=== PATIENT | female | born 1990 | race Caucasian/White ===

== ENCOUNTER 2021-04-17 20:00 | Emergency (ER) | payer MEDICARE | END 2021-04-17 21:20 | disposition home or self-care (01) | LOC: CSHERS 20:00 | DX: T81.41XA Infection following a procedure, superficial incisional surgical site, initial encounter (principal); L03.113 Cellulitis of right upper limb; E28.2 Polycystic ovarian syndrome; Z87.891 Personal history of nicotine dependence; I47.1 Supraventricular tachycardia; Z79.899 Other long term (current) drug therapy; E03.9 Hypothyroidism, unspecified | CPT/HCPCS: 99282 ==

== ENCOUNTER 2022-04-14 13:24 | Emergency (ER) | payer MEDICAID, MEDICARE | END 2022-04-14 13:59 | disposition home or self-care (01) | LOC: CSHERS 13:24 | DX: L30.9 Dermatitis, unspecified (principal); Z87.891 Personal history of nicotine dependence | CPT/HCPCS: 99282 ==

== ENCOUNTER 2022-07-01 16:56 | Emergency (ER) | payer MEDICARE | END 2022-07-01 19:00 | disposition home or self-care (01) | LOC: CSHERS 16:56 | DX: R05.9 Cough, unspecified (principal); Z20.822 Contact with and (suspected) exposure to COVID-19; E03.9 Hypothyroidism, unspecified; Z87.891 Personal history of nicotine dependence | CPT/HCPCS: 71046; 99283; U0003; U0005 ==

== ENCOUNTER 2022-07-10 20:20 | Emergency (ER) | payer MEDICARE ==
[~2022-07-10 20:20] MED LIST: Iopamidol 370 76% 100 ML VIAL ONE
[2022-07-10 21:01] LABS: #Basophils 0.1 10x3/uL (0.0-0.2); #Eosinphils 0.1 10x3/uL (0.0-0.5); #Monocytes 1.2 10x3/uL (0.0-1.1); #Neutrophils 9.8 10x3/uL (1.5-8.4); %Basophils 0.4 % (0.0-2.0); %Eosinophils 0.4 % (0.0-6.0); %Lymphocytes 21.3 % (18.0-47.0); %Monocytes 8.1 % (0.0-10.0); %Neutrophils 69.4 % (40.0-75.0); Hemoglobin 13.1 g/dL (12.0-15.5); Mean Corpuscular HGB CONC 34.7 g/dL (32.0-36.0); Mean Corpuscular Hemoglobin 28.9 pg (27.0-33.0); Mean Corpuscular Volume 83.4 fl (81.6-98.3); Mean Platelet Volume 8.8 fl (7.4-10.4); Platelet Count 293 10x3/uL (150-450); RBC Distribution Width 12.4 % (11.5-14.5); Red Blood Cell (RBC) Count 4.53 10x6/uL (3.90-5.03); White Blood Cell (WBC) Count 14.2 10x3/uL (3.5-10.5)
[2022-07-10 21:13] LABS: BHCG - Serum Negative (NEGATIVE); Pregs Control Bar Appear? YES (CONTROL BAR)
[2022-07-10 21:14] LABS: Pregs Control Background? CLEAR/WHITE (CLR/WHITE)
[2022-07-10 21:24] LABS: ALT (SGPT) 14 U/L (8-55); AST (SGOT) 17 U/L (5-34); Albumin 5.1 g/dL (3.5-5.0); Alkaline Phosphatase 104 U/L (40-110); Anion Gap 18 mmol/L (10-20); BUN (Urea Nitrogen) 8 mg/dL (7.0-18.7); Bilirubin, Total 0.5 mg/dL (0.2-1.2); Calc. Creatinine Clearance 0 mL/min (70-130); Calcium 10.3 mg/dL (7.8-10.44); Carbon Dioxide 22 mmol/L (22-29); Chloride 101 mmol/L (98-107); Estimated GFR 112; Globulin 3.1 g/dL (2.4-3.5); Glucose 91 mg/dL (70-105); Lipase 26 U/L (8-78); Potassium 3.7 mmol/L (3.5-5.1); Protein, Total 8.2 g/dL (6.0-8.3); Sodium 137 mmol/L (136-145)
== END 2022-07-10 22:02 | disposition home or self-care (01) ==
LOC: CSHERS 20:20
DX: R07.89 Other chest pain (principal); E03.9 Hypothyroidism, unspecified; Z87.891 Personal history of nicotine dependence; Z79.899 Other long term (current) drug therapy
CPT/HCPCS: 71045; 71275; 80053; 83690; 84484; 84703; 85025; 93005; Q9967

== ENCOUNTER 2023-02-08 19:27 | Emergency (ER) | payer MEDICARE, OTHER ==
[2023-02-08] MEDS ORDERED: Lidocaine 1% (PF) 30 ML VIAL ONE (20:14)
== END 2023-02-08 22:08 | disposition home or self-care (01) ==
LOC: CSHERS 19:27
DX: K14.8 Other diseases of tongue (principal); E03.9 Hypothyroidism, unspecified; Z95.0 Presence of cardiac pacemaker; Z87.891 Personal history of nicotine dependence
CPT/HCPCS: 10160; J2001

== ENCOUNTER 2023-03-11 11:18 | Emergency (ER) | payer OTHER | END 2023-03-11 13:45 | disposition home or self-care (01) | LOC: CSHERS 11:18 | DX: S80.862A Insect bite (nonvenomous), left lower leg, initial encounter (principal); S80.861A Insect bite (nonvenomous), right lower leg, initial encounter; E03.9 Hypothyroidism, unspecified; W57.XXXA Bitten or stung by nonvenomous insect and other nonvenomous arthropods, initial encounter | CPT/HCPCS: 99282 ==

== ENCOUNTER 2024-02-07 21:03 | Day surgery (SDC) | payer OTHER ==
[2024-02-07 21:59] VITALS: BMI 27.2
[2024-02-07] MEDS ORDERED: hydrALAZINE 20 MG/ML VIAL SLOW IVP PRN (22:29)
[2024-02-07] MEDS ORDERED: Lactated Ringer's 1,000 ML IV SCH (22:30)
[2024-02-07] MEDS ORDERED: Acetaminophen 325 MG TAB PO PRN (22:40)
[2024-02-07] MEDS: Ondansetron ODT 4 MG TAB PO PRN (22:43)
[2024-02-07 23:00] LABS: #Basophils 0.1 10x3/uL (0.0-0.2); #Monocytes 0.9 10x3/uL (0.0-1.1); #Neutrophils 16.8 10x3/uL (1.5-8.4); %Basophils 0.4 % (0.0-2.0); %Eosinophils 0.1 % (0.0-6.0); %Lymphocytes 6.4 % (18.0-47.0); %Monocytes 4.5 % (0.0-10.0); %Neutrophils 86.5 % (40.0-75.0); Hematocrit 38.9 % (34.9-44.5); Hemoglobin 13.4 g/dL (12.0-15.5); Mean Corpuscular HGB CONC 34.4 g/dL (32.0-36.0); Mean Corpuscular Hemoglobin 30.1 pg (27.0-33.0); Mean Corpuscular Volume 87.4 fl (81.6-98.3); Mean Platelet Volume 9.5 fl (7.4-10.4); Platelet Count 275 10x3/uL (150-450); RBC Distribution Width 12.9 % (11.5-14.5); Red Blood Cell (RBC) Count 4.45 10x6/uL (3.90-5.03); White Blood Cell (WBC) Count 19.4 10x3/uL (3.5-10.5)
[2024-02-08 00:17] LABS: Bilirubin Neg (Negative); Blood, Urine Negative (Negative); Glucose, Urine (Dipstick) Normal (Negative); Ketone, Urine 150 mg/dL (Negative); Leukocyte Negative (Negative); Nitrite Negative (Negative); Protein, Urine (Dipstick) 30 mg/dl (Neg-Trace); Specific Gravity, Urine 1.025 (1.005-1.030); Urobilinogen Normal mg/dL (Less than 2)
[2024-02-08 00:19] LABS: Clarity Clear (Clear)
[2024-02-08 00:31] LABS: ALT (SGPT) 14 U/L (8-55); AST (SGOT) 16 U/L (5-34); Albumin 3.7 g/dL (3.5-5.0); Alkaline Phosphatase 71 U/L (40-110); Anion Gap 16 mmol/L (10-20); BUN (Urea Nitrogen) 11 mg/dL (7.0-18.7); Bilirubin, Total 0.4 mg/dL (0.2-1.2); Calc. Creatinine Clearance 153 mL/min (70-130); Carbon Dioxide 19 mmol/L (22-29); Chloride 109 mmol/L (98-107); Estimated GFR 120; Globulin 3.1 g/dL (2.4-3.5); Glucose 98 mg/dL (70-105); Potassium 4.5 mmol/L (3.5-5.1); Protein, Total 6.8 g/dL (6.0-8.3); Sodium 139 mmol/L (136-145)
[2024-02-08 00:33] LABS: Bacteria/HPF 1+ HPF (None Seen); CAUTI Indications for Culture Pregnancy; Mucous/LPF 1+ LPF (<2+); RBC/HPF 0-3 HPF (0-3); WBC/HPF 0-3 HPF (0-3)
[2024-02-08 00:34] LABS: Urine Culture Reflex Yes Yes
== END 2024-02-08 03:30 | disposition home or self-care (01) ==
LOC: CSHLD/OP 21:03
PROVIDERS: ATTEND Student in an Organized Health Care Education/Training Program
DX: O21.2 Late vomiting of pregnancy (principal); O99.613 Diseases of the digestive system complicating pregnancy, third trimester; A08.4 Viral intestinal infection, unspecified; O99.283 Endocrine, nutritional and metabolic diseases complicating pregnancy, third trimester; E03.9 Hypothyroidism, unspecified; E86.0 Dehydration; O99.413 Diseases of the circulatory system complicating pregnancy, third trimester; I49.5 Sick sinus syndrome; O34.211 Maternal care for low transverse scar from previous cesarean delivery; Z90.49 Acquired absence of other specified parts of digestive tract; Z98.890 Other specified postprocedural states; Z95.0 Presence of cardiac pacemaker; Z3A.29 29 weeks gestation of pregnancy
CPT/HCPCS: 76819; 80053; 81001; 85025; 87086; 96360; 99281; Q0162

== ENCOUNTER 2024-10-16 09:41 | Emergency (ER) | payer MEDICARE, OTHER | END 2024-10-16 11:15 | disposition home or self-care (01) | LOC: CSHERS 09:41 | DX: S52.122A Displaced fracture of head of left radius, initial encounter for closed fracture (principal); E03.9 Hypothyroidism, unspecified; Z79.899 Other long term (current) drug therapy; Z95.0 Presence of cardiac pacemaker; W18.30XA Fall on same level, unspecified, initial encounter | CPT/HCPCS: 99283 ==

== ENCOUNTER 2024-10-27 18:11 | Emergency (ER) | payer OTHER ==
[2024-10-29 03:45] LABS: #Basophils 0.06 10x3/uL (0.0-0.2); #Eosinophils 0.18 10x3/uL (0.0-0.5); #Monocytes 0.81 10x3/uL (0.0-1.1); #Neutrophils 6.82 10x3/uL (1.5-8.4); %Basophils 0.6 % (0.0-2.0); %Eosinophils 1.7 % (0.0-6.0); %Monocytes 7.8 % (0.0-10.0); %Neutrophils 65.5 % (40.0-75.0); BHCG - Serum Negative (NEGATIVE); Hematocrit 39.8 % (34.9-44.5); Hemoglobin 14.1 g/dL (12.0-15.5); Mean Corpuscular HGB CONC 35.4 g/dL (32.0-36.0); Mean Corpuscular Hemoglobin 30.7 pg (27.0-33.0); Mean Corpuscular Volume 86.7 fL (81.6-98.3); Mean Platelet Volume 8.9 fL (7.4-10.4); Platelet Count 330 10x3/uL (150-450); Pregs Control Background? CLEAR/WHITE (CLR/WHITE); Pregs Control Bar Appear? YES (CONTROL BAR); RBC Distribution Width 11.4 % (11.5-14.5); Red Blood Cell (RBC) Count 4.59 10x6/uL (3.90-5.03); White Blood Cell (WBC) Count 10.4 10x3/uL (3.5-10.5)
[2024-10-29 03:50] LABS: ALT (SGPT) 18 U/L (8-55); AST (SGOT) 22 U/L (5-34); Albumin 4.5 g/dL (3.5-5.0); Alkaline Phosphatase 69 U/L (40-110); Anion Gap 19 mmol/L (10-20); BUN (Urea Nitrogen) 17 mg/dL (7.0-18.7); Bilirubin, Total 0.4 mg/dL (0.2-1.2); Calc. Creatinine Clearance 0 mL/min (70-130); Calcium 10.5 mg/dL (7.8-10.44); Carbon Dioxide 21 mmol/L (22-29); Chloride 105 mmol/L (98-107); Estimated GFR 101; Globulin 3.5 g/dL (2.4-3.5); Glucose 104 mg/dL (70-105); Sodium 141 mmol/L (136-145)
[2024-10-29 03:51] LABS: Troponin I Less than 0.010 ng/mL (< 0.028)
== END 2024-10-27 22:36 | disposition home or self-care (01) ==
LOC: CSHERS 18:11
DX: R55 Syncope and collapse (principal); F17.210 Nicotine dependence, cigarettes, uncomplicated
CPT/HCPCS: 71045; 71275; 80053; 84484; 84703; 85025; 85379; 93005; 93010

== ENCOUNTER 2025-11-26 12:16 | Emergency (ER) | payer OTHER ==
[2025-11-26 14:07] LABS: #Basophils 0.04 10x3/uL (0.0-0.2); #Eosinophils 0.15 10x3/uL (0.0-0.5); #Monocytes 0.94 10x3/uL (0.0-1.1); #Neutrophils 5.73 10x3/uL (1.5-8.4); %Basophils 0.5 % (0.0-2.0); %Eosinophils 1.7 % (0.0-6.0); %Lymphocytes 21.0 % (18.0-47.0); %Monocytes 10.8 % (0.0-10.0); %Neutrophils 65.8 % (40.0-75.0); Hematocrit 34.3 % (34.9-44.5); Hemoglobin 12.3 g/dL (12.0-15.5); Mean Corpuscular Hemoglobin 31.2 pg (27.0-33.0); Mean Corpuscular Volume 87.1 fL (81.6-98.3); Platelet Count 195 10x3/uL (150-450); Red Blood Cell (RBC) Count 3.94 10x6/uL (3.90-5.03); White Blood Cell (WBC) Count 8.71 10x3/uL (3.5-10.5)
[2025-11-26 14:20] LABS: ALT (SGPT) 9 U/L (Less than 34); AST (SGOT) 16 U/L (11-34); Albumin 4.0 g/dL (3.1-4.5); Alkaline Phosphatase 45 U/L (40-110); Anion Gap 13 mmol/L (10-20); BUN (Urea Nitrogen) 13 mg/dL (7.0-18.7); Bilirubin, Total 0.5 mg/dL (0.3-1.2); Calc. Creatinine Clearance 0 mL/min (70-130); Calcium 9.3 mg/dL (7.8-10.44); Carbon Dioxide 24 mmol/L (22-29); Chloride 108 mmol/L (98-107); Globulin 2.8 g/dL (2.4-3.5); Glucose 89 mg/dL (70-105); Magnesium 1.8 mg/dL (1.6-2.6); Potassium 3.7 mmol/L (3.5-5.1); Sodium 141 mmol/L (136-145)
[2025-11-26] MEDS ORDERED: Ondansetron PF 4 MG/2 ML Vial ONE (14:51)
[2025-11-26] MEDS ORDERED: Ketorolac Tromethamine 30 MG (1 mL) VIAL ONE (14:51)
[2025-11-26 15:52] LABS: BHCG - Serum Negative (NEGATIVE); Pregs Control Background? CLEAR/WHITE (CLR/WHITE); Pregs Control Bar Appear? YES (CONTROL BAR)
[2025-11-26 16:43] LABS: Glucose, Urine (Dipstick) Normal (Negative); Leukocyte Negative (Negative); Protein, Urine (Dipstick) Negative (Neg-Trace); Specific Gravity, Urine 1.010 (1.005-1.030)
[2025-11-26 16:45] LABS: Pregnancy Test - Urine (BHCG) Negative (Negative); Pregu Control Background? CLEAR/WHITE (CLR/WHITE); Pregu Control Bar Appear? YES (CONTROL BAR)
[2025-11-26 16:50] LABS: RBC/HPF 21-50 HPF (0-3)
[2025-11-26 16:51] LABS: Bacteria/HPF 1+ HPF (None Seen); CAUTI Indications for Culture Pelvic or flank pain; WBC/HPF 0-3 HPF (0-3)
[2025-11-26 16:52] LABS: Urine Culture Reflex No No
== END 2025-11-26 17:18 | disposition home or self-care (01) ==
LOC: CSHERS 12:16
DX: R07.89 Other chest pain (principal); R51.9 Headache, unspecified; R42 Dizziness and giddiness; R06.02 Shortness of breath; Z55.6 Problems related to health literacy
CPT/HCPCS: 71275; 81001; 81025; 83735; 84703; 85379; 93005; J1885; J2405; 80053; 84443; 85025; 96374; 96375; Q9967